=== PATIENT | female | born 2005 | race Caucasian/White ===

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

== ENCOUNTER 2025-02-06 16:04 | Emergency (ER) | payer OTHER, SELFPAY ==
--- NOTE | 2025-02-06 16:11 | ED_ITS ---
HPI - Skin/Abscess/Foreign Bdy General Chief complaint: Skin/Abscess/Foreign Body Stated complaint: Rash/Tick Bite Time Seen by Provider: 02/06/25 16:06 Source: patient Mode of arrival: ambulatory Limitations: no limitations History of Present Illness HPI narrative: Celeste is a 19-year-old female patient presenting to the clinic today with complaints of a rash/tick bite. She reports just started having itchy raised rash around her heels and arm that started over the last 1-2 days. Also reports the a tick bite to the back of the left posterior thigh. States that she had the tick bite for some time now and is not complaining of any pain over the area. Denies any body aches, joint pain, fever, or chills. Patient is 18 weeks . Related Data Home Medications ?Medication ?Instructions ?Recorded ?Confirmed ?Last Taken ?Type vit no.95-ferrous 1 tablet PO DAILY 02/06/25 02/06/25 Unknown History fumarate 28 mg-folic acid 800 mcg tablet ( Multivitamins) Allergies Allergy/AdvReac Type Severity Reaction Status Date / Time No Known Allergies Allergy Verified 02/06/25 16:23 Review of Systems Review of Systems: Pertinent positives per HPI. Patient denies any fever, chills, headache, visual changes, dizziness, cough, runny nose, sore throat, shortness of breath, chest pain, palpitations, nausea, vomiting, diarrhea, constipation, abdominal pain, or any urinary issues. [facility] Past Medical History Medical History No pertinent past medical history Comments At the time of my signature, I reviewed and agree with the nursing past medical, surgical, social, and family history. There is no relevant family history pertinent to the patient complaint. Exam Narrative: General: Well-developed, well nourished, in no apparent distress Head: Normocephalic, atraumatic. Cardio: Regular rate and rhythm, s1 and s2 normal, no murmur appreciated. Resp: Clear to auscultation bilaterally, no rhonchi, rales, wheezing or rubs. Integumentary: [place], warm, and dry, mildly indurated insect bite to the left posterior thigh without sign of infection, nontender to palpation, red, raised, itchy rash to forearms into the bilateral posterior heel that appears to be dermatitis/eczema in nature. Course Course Emergency Course: Portions of this record may have been created with voice recognition software. Level of Care: Express Care Visit Vital Signs Vital signs: Vital Signs Temperature 36.6 C 02/06/25 16:13 Pulse Rate 78 02/06/25 16:13 Respiratory Rate 18 02/06/25 16:13 Blood Pressure 128/73 02/06/25 16:13 Pulse Oximetry 100 02/06/25 16:13 Oxygen Delivery Room Air 02/06/25 16:13 Temperature 36.6 C 02/06/25 16:13 Pulse Rate 78 02/06/25 16:13 Respiratory Rate 18 02/06/25 16:13 Blood Pressure 128/73 02/06/25 16:13 Pulse Oximetry 100 02/06/25 16:13 Oxygen Delivery Room Air 02/06/25 16:13 Vital signs reviewed MDM - Skin/Abscess/Foreign Bdy MDM Narrative Medical decision making narrative: At the time of visit patient is resting comfortably on the exam table. Patient appears to be nontoxic. Plan: I suspect patient has dermatitis to bilateral heels and to her forearms. Has old tick bite to the left posterior thigh that is resolving. No fevers, chills, body aches, or joint pain. She is 18 weeks . Supportive measures were discussed with the patient and they voiced understanding discharge instructions and agrees to treatment plan. Return precautions reviewed Differential Diagnosis Differential diagnosis: Likely abscess of skin or subcutaneous tissue, viral exanthem, dermatophytosis, urticaria, herpes zoster, allergic reaction to drug, cellulitis, eczema, insect bites, impetigo and contact dermatitis Discharge Plan Discharge Clinical Impression: Dermatitis, Tick bite Patient Disposition: Home Condition: Stable Instructions: Antibiotic Form, Tick Bite (ED), Dermatitis (ED) Additional Instructions: Apply triamcinolone cream as directed Avoid hot showers Avoid scratching as this can cause a secondary infection May take benadryl 25-50mg every 6 hours as needed for itching. Follow up with your PCP in 3-5 days if symptoms persist or sooner if they worsen Go to the Emergency Room if symptoms worsen- fever, rash spreading with treatment, joint pain, body aches, chills, shortness of breath, tongue swelling, drooling, or chest pain Approved Medications for Patients Cold and Flu Symptoms --Tylenol (regular or extra Strength) Fever (call if over 101?)--Tylenol (regular or extra Strength) Nasal Drainage/Head Congestion--Chlor-Trimeton, Sudafed, Tavist,Tylenol Sinus Cough--Robitussin, Delsym, Mucinex Sore Throat--Chloraseptic, Cepacol lozenges Allergy Symptoms--Bendryl, Zyrtec, Zyrtec D, Claritin, Claritin D Nausea--Emetrol, Vitamin B6 Tablets, Rama, Rama Tea, Preggie Pops, B-Souleymane Suckers Constipation--Milk of Magnesia, Metamucil, Fiberall, Konsyl, Colace (Docusate Sodium) Diarrhea--Imodium, Kaopectate, Follow BRAT diet: bananas, rice, applesauce, tea/toast Heartburn--Maalox, Mylanta, TUMS, Prilosec OTC, Zantac, Tagament, Prevacid, Pepcid Hemorrhoids--Tucks Pads, Anusol, Preparation H, warm sitz baths Patient Language: Kisw[place]ili Prescriptions: New triamcinolone acetonide 0.1 % cream 1 applic topical BID 7 Days Qty: 30 0RF No Action PNV cmb#95-ferrous fumarate-FA [ Multivitamins] 28 mg iron- 800 mcg tablet 1 tablet PO DAILY Follow-up/Referrals: PHYSICIAN,SOFTWARE TEST TECHNICIAN [Primary Care Provider] - Time of Disposition: 16:30 Quality NIHSS Nursing Documentation ED NIHSS nursing documentation: reviewed/agree
[2025-02-06 16:13] VITALS: BP 128/73; PULSE 78; RESP 18; TEMP 36.6; O2SAT 100
--- OUTSIDE RECORDS SUMMARY | 2025-02-06 16:35 | XMS_ITS | Clinical Summary ---
Author Organization [facility] Address [address] [place] [address] Phone Care Team Providers Care Route Deliverer Name Role Phone Provider, None Primary Care Provider Unavailabl e Allergies No known active allergies Medications ondansetron (ZOFRAN-ODT) 4 MG TABLET DISPERSIBLE Take 1 Tablet by mouth every 8 hours as needed for Nausea - 1st line. 10 Tablet 02/18/2023 Active Social History Tobacco Use Types Packs/Day Years Used Date Smoking Tobacco: Never Smokeless Tobacco: Never Tobacco Cessation:Counseling Given: Not Answered Comments Unknown Sex and Gender Information Value Date Recorded Sex Assigned at Not on file Legal Sex Female 12:21 AM CDT Gender Identity Not on file Sexual Orientation Not on file Last Filed Vital Signs Vital Sign Reading Time Taken Comments Blood Pressure 117/104 02/18/2023 10:11 AM CDT Pulse 92 02/18/2023 10:11 AM CDT Temperature 36.5 C (97.7 F) 02/18/2023 10:11 AM CDT Respiratory Rate 17 02/18/2023 10:1 1 AM CDT Oxygen Saturation 100% 02/18/2023 10: 11 AM CDT Inhaled Oxygen Concentration - - Weight 62.8 kg (138 lb 7.2 oz) 02/19/20 10:11 AM CDT Height 167.6 cm (5' 6 ) 02/18/2023 10:1 1 AM CDT Body Mass Index 22.35 02/18/2023 10:11 AM CDT Body Mass Index Percentile 65.86% 02/18 10:11 AM CDT Growth Chart: [facility] (Girls, 2- 20 Years) Plan of Treatment Health Maintenance Due Date Last Done Comments Hepatitis C Virus (HCV) Screening 2005 Hepatitis A Immunization (1 of 2 - 2-dose series) 2006 Human Papillomavirus (HPV) Immunization (1 - 3-dose series) 2020 Meningococcal B Immunization (1 of 2 - Standard) 2021 Meningococcal Immunization (ACWY) (2 - 2-dose series) 2021 07/24/2018 Influenza Immunization (#1) 2024 SARS-COV-2 Immunization ( - 2023- season) 2024 DTaP/Tdap/Td Immunization (7 - Td or Tdap) 07/24/2028 07/24/2018, 09/11/2011, 06/10/2009, Additional history exists Respiratory Syncytial Virus (RSV) Immunization (Adult) (1 - 1-dose 75+ series) 2080 Hepatitis B Immunization Completed 007, 05/23/2006, 03/21/2006, Additional history exists Pneumococcal Immunization Combined Aged Out 04/06/2007, 05/23/2006, 03/21/2006 No longer eligible based on patient's age to complete this topic Measles Mumps Rubella (MMR) Immunization Completed 05/24/2011, 04/06/2007 Varicella Immunization Completed 05/24/2011, 2006 Polio (IPV) Immunization Completed 021, 06/10/2009, 04/06/2007, Additional history exists Rotavirus Immunization Aged Out No lo nger eligible based on patient's age to complete this topic Insurance [facility] [employer] Care Teams Route Deliverer Relationship Specialty Start Date End Date Provider, None [place] PCP - General 02/18/23
== END 2025-02-06 16:35 | disposition home or self-care (01) ==
PROVIDERS: Emergency Provider Nurse Practitioner Family
DX: L30.9 Dermatitis, unspecified (principal); S70.362A Insect bite (nonvenomous), left thigh, initial encounter; W57.XXXA Bitten or stung by nonvenomous insect and other nonvenomous arthropods, initial encounter
CPT/HCPCS: 99213; G0463